=== PATIENT | female | born 2000 | race Caucasian/White ===

== ENCOUNTER 2023-12-16 14:15 | Outpatient (CLI) | payer OTHER ==
--- NOTE | 2023-12-16 15:11 | XRAY Report ---
PROCEDURE: Chest 2V INDICATIONS: CHEST PAIN, PLEURITIC TECHNIQUE: 2 views of the chest were acquired. COMPARISON: None. FINDINGS: Surgical changes and devices: None. Lungs and pleura: No pleural effusions or pneumothorax. Lungs are clear. Mediastinum: Mediastinal contours appear normal. Heart size is normal. Bones and chest wall: No suspicious bony lesions. Overlying soft tissues appear unremarkable. IMPRESSION: No acute cardiopulmonary process. Reviewed by: Delfina Horton MD on 12/16/2023 3:09 PM PDT Approved by: Delfina Horton MD on 12/16/2023 3:09 PM PDT Station ID: [id number]
== END 2023-12-16 14:30 | disposition home or self-care (01) ==
LOC: DI.N 14:15
PROVIDERS: ATTEND Physician Assistant Medical
DX: R07.81 Pleurodynia (principal)